=== PATIENT | female | born 1950 | race Caucasian/White ===

== ENCOUNTER 2016-09-22 06:07 | Day surgery (SDC) | payer MEDICARE ==
--- NOTE | 2016-09-15 18:44 | PREOP HISTORY & PHYSICAL ---
HISTORY: 66 year old female here for evaluation of declining vision in both eyes for about the past 2 years. She recently saw Dr. Llanos last May and was told she has cataracts in both eyes. The patient notes "very poor vision" in the left eye with worsening glare symptoms at night (patient avoids night driving due to this issue). She is having more trouble seeing road signs - especially at night. She also has more trouble reading and is using a magnifiers at times. She is also having some trouble seeing the scrolling anne on the television. The current glasses are about 2 years old. PAST OCULAR HISTORY: Post LASIK OU in 2002 (Dr. Oquendo), Right orbital fracture OD (horse injury) - post repair 2002 ([facility]), Glasses OCULAR MEDICATIONS: None PAST MEDICAL HISTORY: Attention deficit disorder (314.00) (F98.8) adult Depression (311) Mammoplasty; Augmentation bilateral ALLERGIES: No Known Drug Uislcadgx52/15/2012 FAMILY HISTORY: No Significant Family Ocular History SOCIAL HISTORY: Alcohol use Drinks Socially Tobacco Use Never smoker. Vehicle Driving Yes. CURRENT MEDICATIONS: Lisinopril (10MG Tablet, Oral daily) Active. Wellbutrin SR (150MG Tablet ER 12HR, 1 PO bID) Active. CeleXA (40MG Tablet, Oral) Active. Ritalin (10MG Tablet, Oral) Active. Abilify (2MG Tablet, Oral daily) Active. Medications Reconciled PAST SURGICAL HISTORY: Knee Arthroscopy Right - 2011 (Dr. Calvo) Orbital Fracture Repair History of right orbital / nasal fracture in 2002 ( horse-related injury) - post repair with implants (done by a surgeon in [facility]). LASIK (87226) OU in 2002 (Dr. Oquendo in [place]) PHYSICAL EXAMINATION: 08/30/2016 5:31 PM Pulse: 72 (Regular) P.OX: 95% (Room air) BP: 123/89 (Sitting, Left Wrist, Small) Chest and Lung Exam Chest and lung exam reveals -Clear and Symmetry throughout. Cardiovascular Auscultation Rhythm - Regular. Heart Sounds - Normal heart sounds. Murmurs & Other Heart Sounds - Auscultation of the heart reveals - No Murmurs. OCULAR EXAMINATION: VISUAL ACUITY: with correction (Glasses) OD 20/20-2 OS 20/50- NEAR J1 at 14" WORKING Rx: OD -1.00 + 0.75 x 043 OS -1.50 + 1.25 x 163 ADD + 2.25 (Progressive lens) MANIFEST REFRACTION: OD -1.00 + 0.75 x 043 (20/20-2 BAT 20/30) No improvement in vision OS -2.00 + 1.25 x 150 (20/30-2 BAT 20/60-2) Better vision in trial frames ADD + 2.50 (J1+ at 14") Better near vision in trial frames than previous Rx CONFRONTATIONAL VISUAL MONTESINOS: Normal to counting fingers in four quadrants OU PUPILS: Round and equal OU with no afferent pupillary defect seen EXTERNAL: Normal OU EXTRA-OCULAR MUSCLES: Versions full OU - orthotropic at both distance and near SLIT LAMP EXAM: LIDS/LASHES: Normal OU CONJUNCTIVA: Quiet OU CORNEA: Clear OU AC: Deep and quiet OU IRIS: Normal OU PUPILS: Round OU - dilated widely OU LENS: 2+ nuclear sclerosis with 2+ inferior (solar) cortical cataract changes OD. 2-3+ central nuclear sclerosis with moderate vacuolar cortical and 2+ diffuse posterior sub-capsular cataract changes OS only ANTERIOR VITREOUS: No anterior vitreous cells or pigment seen OU TONOMETRY: TIME: 8:24 AM OD: 12 mm Hg OS: 10 mm Hg DILATING gtt: Phenylephrine 2.5% + Tropicamide 1% FUNDUS: C/D: 0.4 OU DISCS: Sharp with clear disc margins OU MACULA: 1-2+ central pigmentary disturbance OS > OD VESSELS: Normal OU PERIPHERY: Posterior vitreous detachment OU with no retinal breaks seen KERATOMETRY: OD 42.44 / 42.89 x 088 OS 42.86 / 43.35 x 134 (standard keratometry OU) AXIAL LENGTH: OD 24.88 +/- 0.003 OS 24.93 +/- 0.010 IMPRESSION: Cataract cortical, senile, bilateral (H25.013) Story: Visually significant cataracts OS > OD - the patient has significant visual symptoms, especially OS. Discussed with patient today who would like to proceed with cataract surgery OS. We discussed the refractive goals today and the patient would like to be corrected to a near-plano spherical equivalent postoperatively OS. We discussed the difficulty in obtaining accurate intra- ocular lens calculations in light of having had LASIK OU, and the patient understands this risk and understands that she may require intra-ocular lens exchange if there is too great a deviation from the planned postoperative refractive error. The intra-ocular lens calculations were done using corneal optical coherence tomography and the Anthony James IOL power calculator, with a planned SA60AT intra-ocular lens power of 18.50 D OU (for a near-plano spherical equivalent OU). Macular degeneration, dry (H35.1556) Story: Very early macular pigmentary disturbance OU - the patient may have early dry age-related macular degeneration OU which may limit the final visual acuity after cataract surgery. Posterior vitreous detachment, bilateral (H43.813) S/P LASIK (laser assisted in situ keratomileusis) (Z98.890) Story: Post LASIK OU in 2002 (Dr. Oquendo). PLAN: Cataract extraction with intra-ocular lens OS, September 22, 2016. Lid soaks and scrubs BID OU (pre-operative blepharitis protocol and antibiotic ointment instructions handout given to patient today). Erythromycin ophthalmic ointment q hs OU as blepharitis prophylaxis (an e-Rx with refills x 1 was sent to [facility] today). OPHTHALMIC BIOMETRY BY PARTIAL COHERENCE INTERFEROMETRY (82935) Started Erythromycin 5MG/GM, Apply 1/8 inch Ointment to the eyelashes of both eyes at bedtime, 1 Tube, 08/30/2016, Ref. x1. Started Zymaxid 0.5%, 1 drop(s) four times daily to the operated eye, after surgery, 1 Bottle, 08/30/2016, Ref. x1. Started PrednisoLONE Acetate 1%, 1 drop(s) four times daily in the operated eye , after surgery, 10 Milliliter, 08/30/2016, Ref. x1. MTDD
[~2016-09-22 06:07] MED LIST: APRACLONIDINE 0.5% OPHTH 5 ML BTL OP PRN; BUPIVACAINE HCL/PF 0.75% 10 ML VIAL OP PRN; CIPROFLOXACIN 0.3% OPHTH 50 DROP/5 ML BTL OP SCH; CYCLOPENTOLATE HCL 1% OPHTH 2 ML BTL OP SCH; FLURBIPROFEN 0.03% OPHTH 2.5 ML BTL OP SCH; PHENYLEPHRINE 2.5% OPHTH 10 DROP/2 ML BTL OP SCH
[2016-09-22 06:28] VITALS: RESP 16; TEMP 98.2
[2016-09-22] MEDS ORDERED: CIPROFLOXACIN 0.3% OPHTH 50 DROP/5 ML BTL ONE (06:30)
[2016-09-22] MEDS ORDERED: APRACLONIDINE 0.5% OPHTH 5 ML BTL ONE (06:30)
[2016-09-22] MEDS ORDERED: FLURBIPROFEN 0.03% OPHTH 2.5 ML BTL ONE (06:30)
[2016-09-22] MEDS ORDERED: CYCLOPENTOLATE HCL 1% OPHTH 2 ML BTL ONE (06:30)
[2016-09-22] MEDS ORDERED: BUPIVACAINE HCL/PF 0.75% 10 ML VIAL ONE (06:30)
[2016-09-22] MEDS ORDERED: PHENYLEPHRINE 2.5% OPHTH 10 DROP/2 ML BTL ONE (06:31)
[2016-09-22] MEDS ORDERED: BACITRACIN OPHTH OINTMENT 3.5 GM TUBE ONE (07:02)
[2016-09-22] MEDS ORDERED: LIDOCAINE HCL/PF 1% 30 ML VIAL ONE (07:03)
[2016-09-22] MEDS ORDERED: CHONDROITIN/HYALURONIDATE OPHT 0.5 ML KIT ONE (07:03)
[2016-09-22] MEDS ORDERED: KETOROLAC 0.45% OPHTH 1 DROP/EACH DROPERETTE ONE (07:03)
[2016-09-22] MEDS ORDERED: TETRACAINE 0.5% ONE (07:04)
[2016-09-22] MEDS ORDERED: MIDAZOLAM HCL 2 MG/2 ML VIAL ONE (08:10)
[2016-09-22 08:37] VITALS: BP 129/79; PULSE 62; O2SAT 92
--- NOTE | 2016-09-22 11:08 | OPERATIVE REPORT ---
DATE OF SURGERY: 09/22/2016. SURGEON: Gamaliel Granados MD ANESTHESIA: Topical with monitored anesthesia care. PREOPERATIVE DIAGNOSIS: Cataract, left eye. POSTOPERATIVE DIAGNOSIS: Cataract, left eye. OPERATION PERFORMED: Cataract extraction by phacoemulsification with posterior chamber intraocular lens, left eye. COMPLICATIONS: None. PROCEDURE: The patient was brought to the operating room where she was placed in the supine position. After the instillation of additional tetracaine drops in the left eye, the eye was prepped and draped in the usual sterile ophthalmic manner. A lid speculum was placed in the left eye, but the patient did not tolerate this well and was squeezing her eyelids excessively throughout the procedure, thus creating great posterior vitreous pressure. She was given 1 mg of Versed which did not appear to have any effect on her eyelid squeezing. Additionally , the patient appeared to be incapable of moving her eyes as instructed during the procedure, and had many rapid darting eye movements throughout the procedure , all of which made this case extremely difficult and risky. An inferior paracentesis was fashioned with 1-mm steel keratome, and 0.2 mL of 1% nonpreserved lidocaine was injected intracamerally followed by Viscoat. A temporal clear corneal incision of 3-mm width was fashioned with a steel keratome. A continuous curvilinear capsulorrhexis was fashioned with a bent- needle cystitome and Utrata forceps under Viscoat. This was very difficult to perform as the patient's upper eyelid obscured much of the field due to excessive squeezing. The superior rhexis was essentially done in a blind manner as was cortical cleanup in this quadrant later in the case. Hydrodissection was carried out with balanced salt solution on an intraocular cannula. The nucleus was noted to rotate freely. Phacoemulsification proceeded in a two-handed fashion utilizing moderate phacoemulsification times and wahl, as the nucleus was noted to be 2+ dense. Residual cortical material was then removed with the automated irrigation-aspiration handpiece ( and blindly in the superior quadrant). The anterior chamber and capsular bag were then reinflated with Provisc, after which an AcrySof model SA60AT foldable acrylic intraocular lens of 18.5 diopters power was placed into the capsular bag. The haptics were rotated with a Y hook and the intraocular lens was noted to center well. Residual viscoelastic was then removed with the automated irrigation-aspiration handpiece, after which the wound edges were hydrated with balanced salt solution. The intraocular pressure at the conclusion of the procedure was physiologic, and there was no evidence of wound leakage upon testing with a Weck Ivon sponge. Acular drops and bacitracin ointment were placed in the left eye, and the patient was brought to the recovery area, apparently having tolerated the procedure well. She was given full postoperative instructions. Future surgery in the patient's fellow eye should probably be done under retrobulbar or peribulbar anesthesia due to the patient's extremely poor cooperation with eye movements, and excessive squeezing of the eyelid speculum during the surgery MTDD
== END 2016-09-22 08:45 | disposition home or self-care (01) ==
LOC: SDS 06:07
PROVIDERS: ATTEND Ophthalmology
DX: H25.013 Cortical age-related cataract, bilateral (principal); H35.3190 Nonexudative age-related macular degeneration, unspecified eye, stage unspecified; H43.813 Vitreous degeneration, bilateral; Z98.890 Other specified postprocedural states; I10 Essential (primary) hypertension; E66.9 Obesity, unspecified; F32.89 Other specified depressive episodes; Z79.899 Other long term (current) drug therapy
CPT/HCPCS: 66984; J0171; J2250; V2632